=== PATIENT | female | born 1995 | race Two or more races ===

== ENCOUNTER 2021-06-04 19:32 | Emergency (ER) | payer BC ==
[~2021-06-04] VITALS: Ht 157.5 cm; Wt 65.8 kg
--- NOTE | 2021-06-04 19:49 | NUR ---
Dr Kiran at bedside, MSE in progress.
[2021-06-04 20:13] LABS: MEAN CORPUSCULAR HEMOGLOBIN 30.1 uug (24.7-32.8); MEAN CORPUSCULAR VOLUME 89.3 fL (75.5-95.3); PLATELET COUNT (AUTO) 244 K/uL (179-408)
[2021-06-04 20:22] LABS: BILIRUBIN,TOTAL 0.3 mg/dL (0.2-1.0); CREATININE 0.6 mg/dL (0.6-1.3); TOTAL PROTEIN, SERUM 7.3 g/dL (6.4-8.2)
[2021-06-04 20:50] LABS: *URINE HCG, QUAL POSITIVE (NEGATIVE)
--- NOTE | 2021-06-04 20:56 | NUR ---
Patient discharged to home in stable condition. Written and verbal after care instructions given. Patient verbalizes understanding of instructions. Stressed follow up or return to ER for worsening s/s. pt ambulated with steady gait. denies pain. no sob. no chest pain. AOx4. accompanied by staff member from [facility]. Addendum: 06/04/21 at 205 by KAT Patient discharged to rehab facility in stable condition. Written and verbal after care instructions given. Patient verbalizes understanding of instructions. Stressed follow up or return to ER for worsening s/s. pt ambulated with steady gait. denies pain. no SOB. no Chest pain. Afebrile. Accompanied by staff member of rehab facility.
[2021-06-04 20:58] VITALS: BP 118/60
== END 2021-06-04 21:02 ==
LOC: ER 19:34
DX: Z02.2 Encounter for examination for admission to residential institution (principal); R00.0 Tachycardia, unspecified; Z32.01 Encounter for pregnancy test, result positive; F41.9 Anxiety disorder, unspecified
CPT/HCPCS: 36415; 84703; 85025; 93005; A4663